=== PATIENT | female | born 1965 | race Caucasian/White ===

== ENCOUNTER 2016-08-07 17:14 | Emergency (ER) | payer SELFPAY ==
[~2016-08-07] VITALS: Ht 157.5 cm; Wt 65.9 kg
[~2016-08-07 17:14] MED LIST: IBUP-2070 PO; OXYC1CAP PO
[2016-08-07] MEDS ORDERED: KETOROLAC TROMETHAMINE 30 MG/ML VIAL IVP ONE (18:45)
[2016-08-07] MEDS ORDERED: PredniSONE 20 MG TABLET PO ONE (19:45)
[2016-08-07 19:47] VITALS: BP 117/80
== END 2016-08-07 20:24 | disposition home or self-care (01) ==
LOC: EMS 17:16
DX: M62.830 Muscle spasm of back (principal); M62.838 Other muscle spasm; F17.210 Nicotine dependence, cigarettes, uncomplicated
CPT/HCPCS: 96372; 99283; 99406; J1885; J7512